=== PATIENT | male | born 1955 | race Caucasian/White ===

== ENCOUNTER 2017-01-25 11:50 | Inpatient (IN) | payer BC, MEDICARE ==
[2017-01-25] VITALS (12 sets, daily range): BP systolic 111–163; BP diastolic 48–80
[~2017-01-25] VITALS: Ht 167.6 cm; Wt 115.0 kg
[2017-01-25] MEDS ORDERED: SODIUM CHLORIDE 0.9% 1,000 ML IVB ONE (11:59)
[2017-01-25] MEDS ORDERED: ASPirin 81 mg TAB PO ONE (12:00)
[2017-01-25 12:35] LABS: Basophils # (auto) 0.1 uL; Basophils % (auto) 0.5 % (0.0-2.0); Eosinophils # (auto) 0.1 uL; Eosinophils % (auto) 0.8 % (0.0-7.0); Hematocrit 36.3 % (41.0-53.0); Hemoglobin 11.8 g/dL (13.5-17.5); Lymphocytes # (auto) 2.7 uL; Lymphocytes % (auto) 19.3 % (10.0-50.0); Mean Corpuscular Hemoglobin 29.8 pg (28.0-32.0); Mean Corpuscular Hgb Conc. 32.6 g/dL (32.0-36.0); Mean Corpuscular Volume 91.5 fL (80.0-100.0); Monocytes # (auto) 0.9 uL; Monocytes % (auto) 6.6 % (0.0-12.0); Neutrophils # (auto) 10.1 uL; Neutrophils % (auto) 72.8 % (37.0-80.0); Platelet Count (auto) 289 10^3/uL (140-450); Red Blood Cells 3.96 10^6/uL (4.5-5.90); Red Cell Distribution Width 15.6 % (11.8-14.3); White Blood Cell 13.9 10^3/uL (4.4-10.8)
[2017-01-25 12:45] LABS: INR 0.97 (0.9-1.15); Partial Thromboplastin Time 23.6 sec (22.64-33.71); Prothrombin Time 10.6 sec (9.37-12.3)
[2017-01-25 12:46] LABS: Alanine Aminotransferase 38 U/L (16-61); Albumin 3.1 g/dL (3.4-5.0); Anion Gap 10 (5-15); Aspartate Aminotransferase 24 U/L (15-37); BUN/Creatinine Ratio 22.4; Blood Urea Nitrogen 26 mg/dL (7-18); Calcium 8.6 mg/dL (8.5-10.1); Carbon Dioxide 28 mmol/L (21-32); Chloride 99 mmol/L (98-107); GFR African American 82 mL/min; GFR Non-African American 68 mL/min; Glucose 257 mg/dL (74-106); Potassium 3.6 mmol/L (3.5-5.1); Sodium 137 mmol/L (136-145)
[2017-01-25 12:51] LABS: Alkaline Phosphatase 116 U/L (45-117); Bilirubin, Total 0.3 mg/dL (0.2-1.0); Total Protein 7.3 g/dL (6.4-8.2)
[2017-01-25] MEDS ORDERED: ACETAMINOPHEN 500 MG TAB PO PRN (14:00)
[2017-01-25] MEDS ORDERED: DEXTROSE (50%) 50ML SYRG IV PRN (14:00)
[2017-01-25] MEDS ORDERED: NITROGLYCERIN 0.4 MG SL TAB SL PRN (14:00)
[2017-01-25] MEDS ORDERED: PROMETHAZINE HCL 25 MG/ML 1ML IV PRN (14:00)
[2017-01-25] MEDS ORDERED: TEMAZEPAM 15 MG CAP PO PRN (14:00)
[2017-01-25] MEDS ORDERED: HYDROcodone-ACET 5/325MG TAB PO PRN (14:00)
[2017-01-25] MEDS ORDERED: LORazepam 0.5 MG TAB PO PRN (14:00)
[2017-01-25] MEDS ORDERED: MORPHINE SULFATE 10 MG/ML INJ 1ML SDV IV PRN ×2 (14:00)
[2017-01-25] MEDS ORDERED: LACTULOSE 20Gm/30ML SOLN PO PRN (14:00)
[2017-01-25] MEDS: InsuLIN REG 1unit/0.01ml Soln (100units/ml) SC SCH ×2 (17:00→22:00)
[2017-01-25] MEDS: ACCU-CHEK COMFORT CURVE STRIP VI SCH ×2 (17:03→22:00)
[2017-01-25] MEDS: ENOXAPARIN SOD 100 MG/1 ML SYRINGE SC SCH (22:00)
[2017-01-25] MEDS: GABAPENTIN 100 MG CAP PO SCH (22:00)
[2017-01-25] MEDS ORDERED: ATORVASTATIN 20 MG TAB PO SCH (22:00)
[2017-01-26] VITALS (27 sets, daily range): BP systolic 98–156; BP diastolic 42–94
[2017-01-26 03:48] LABS: Basophils # (auto) 0.1 uL; Basophils % (auto) 0.6 % (0.0-2.0); Eosinophils # (auto) 0.1 uL; Eosinophils % (auto) 1.1 % (0.0-7.0); Hematocrit 36.3 % (41.0-53.0); Hemoglobin 11.9 g/dL (13.5-17.5); Lymphocytes # (auto) 2.4 uL; Mean Corpuscular Hemoglobin 29.7 pg (28.0-32.0); Mean Corpuscular Hgb Conc. 32.9 g/dL (32.0-36.0); Mean Corpuscular Volume 90.1 fL (80.0-100.0); Monocytes # (auto) 0.8 uL; Monocytes % (auto) 6.2 % (0.0-12.0); Neutrophils # (auto) 9.7 uL; Neutrophils % (auto) 74.1 % (37.0-80.0); Platelet Count (auto) 290 10^3/uL (140-450); Red Blood Cells 4.02 10^6/uL (4.5-5.90); Red Cell Distribution Width 15.8 % (11.8-14.3); White Blood Cell 13.1 10^3/uL (4.4-10.8)
[2017-01-26 04:03] LABS: Albumin 2.8 g/dL (3.4-5.0); BUN/Creatinine Ratio 25.4; Calcium 8.9 mg/dL (8.5-10.1); Potassium 4.7 mmol/L (3.5-5.1)
[2017-01-26 04:06] LABS: Bilirubin, Total 0.4 mg/dL (0.2-1.0); Total Protein 7.1 g/dL (6.4-8.2)
[2017-01-26] MEDS: InsuLIN REG 1unit/0.01ml Soln (100units/ml) SC SCH ×4 (07:03→22:00)
[2017-01-26] MEDS: ACCU-CHEK COMFORT CURVE STRIP VI SCH ×4 (07:03→22:00)
[2017-01-26] MEDS ORDERED: LIDOCAINE 2%HCL (LOCAL ANESTH.) INJ 20ML MDV ONE (08:56)
[2017-01-26] MEDS ORDERED: IOHEXOL 350 MG/ML 100ML IJ ONE ×3 (08:56→10:50)
[2017-01-26] MEDS ORDERED: fentaNYL CITRATE 100 MCG/2 ML VL ONE (09:20)
[2017-01-26] MEDS ORDERED: ANGIOMAX 250 MG VIAL IV ONE ×2 (09:20→10:01)
[2017-01-26] MEDS ORDERED: MIDAZOLAM HCL 1MG/1ML-2 ML VIAL ONE (09:20)
[2017-01-26] MEDS ORDERED: SODIUM CHL 0.9% 50 ML ONE ×2 (09:21→10:01)
[2017-01-26] MEDS ORDERED: ASPI81CH43 PO (09:37)
[2017-01-26] MEDS ORDERED: ATEN-60 PO (09:37)
[2017-01-26] MEDS ORDERED: BENA10TA9 PO (09:37)
[2017-01-26] MEDS ORDERED: INSUINJ18 SC (09:37)
[2017-01-26] MEDS ORDERED: FURO40TA4 PO (09:37)
[2017-01-26] MEDS ORDERED: GABA-339 PO (09:37)
[2017-01-26] MEDS ORDERED: DULO1CAP3 PO (09:37)
[2017-01-26] MEDS ORDERED: INSLANTI SC (09:37)
[2017-01-26] MEDS ORDERED: ROSU20TA14 PO (09:37)
[2017-01-26] MEDS ORDERED: PRASUGREL HCL 10 MG TAB ONE (10:58)
[2017-01-26] MEDS ORDERED: SODIUM CHLORIDE 0.9% 1,000 ML IV ONE (11:30)
[2017-01-26] MEDS: GABAPENTIN 100 MG CAP PO SCH (12:14)
[2017-01-26] MEDS: ASPirin 81 mg TAB PO SCH (12:15)
[2017-01-26] MEDS: DULoxetine HCL 30 MG CAP PO SCH (12:15)
[2017-01-26] MEDS: GABAPENTIN 300 MG CAP PO SCH ×2 (14:00→22:00)
[2017-01-26] MEDS: ENOXAPARIN SOD 100 MG/1 ML SYRINGE SC SCH (15:00)
[2017-01-26 16:17] LABS: Urine Bacteria NONE SEEN /hpf (None Seen); Urine Blood Negative /uL (Negative); Urine WBC <1 /hpf (0 - 3)
[2017-01-26 16:26] LABS: Alcohol, Urine < 3.0 mg/dL (0-5); Amphetamine Screen, Urine NEGATIVE (NEGATIVE); Barbiturate Scree,Urine NEGATIVE (NEGATIVE); Benzodiazephine Screen, Urine POSITIVE (NEGATIVE); Cannabinoid Screen, Urine NEGATIVE (NEGATIVE); Cocaine Screen, Urine NEGATIVE (NEGATIVE); Opiate Scree,Urine NEGATIVE (NEGATIVE); Phencyclidine Screen, Urine NEGATIVE (NEGATIVE)
[2017-01-26 17:28] LABS: Urine Specific Gravity > 1.050 (1.001-1.035)
[2017-01-26] MEDS: ATORVASTATIN 20 MG TAB PO SCH (22:00)
[2017-01-26] MEDS: INSULIN DETEMIR(LEVEMIR) 1unit/0.01ml Soln (100units/ml) SC SCH (22:00)
[2017-01-27 04:18] LABS: Basophils # (auto) 0 uL; Basophils % (auto) 0.4 % (0.0-2.0); Eosinophils # (auto) 0.1 uL; Eosinophils % (auto) 0.8 % (0.0-7.0); Hematocrit 32.6 % (41.0-53.0); Hemoglobin 10.8 g/dL (13.5-17.5); Lymphocytes # (auto) 1.5 uL; Mean Corpuscular Hemoglobin 30.1 pg (28.0-32.0); Mean Corpuscular Hgb Conc. 33.2 g/dL (32.0-36.0); Mean Corpuscular Volume 90.9 fL (80.0-100.0); Monocytes # (auto) 0.8 uL; Neutrophils # (auto) 8.5 uL; Neutrophils % (auto) 77.8 % (37.0-80.0); Platelet Count (auto) 250 10^3/uL (140-450); Red Blood Cells 3.58 10^6/uL (4.5-5.90); Red Cell Distribution Width 15.8 % (11.8-14.3); White Blood Cell 10.9 10^3/uL (4.4-10.8)
[2017-01-27 04:31] LABS: BUN/Creatinine Ratio 20.3; Calcium 8.4 mg/dL (8.5-10.1); Potassium 4.1 mmol/L (3.5-5.1)
[2017-01-27] MEDS: GABAPENTIN 300 MG CAP PO SCH ×3 (06:00→21:45)
[2017-01-27] MEDS: InsuLIN REG 1unit/0.01ml Soln (100units/ml) SC SCH ×4 (06:31→21:45)
[2017-01-27] MEDS: ACCU-CHEK COMFORT CURVE STRIP VI SCH ×3 (06:31→21:45)
[2017-01-27 07:00] VITALS: BP 154/82
[2017-01-27 09:00] VITALS: BP 132/81
[2017-01-27] MEDS: ASPirin 81 mg TAB PO SCH (09:35)
[2017-01-27] MEDS: DULoxetine HCL 30 MG CAP PO SCH (09:35)
[2017-01-27] MEDS: PRASUGREL HCL 10 MG TAB PO SCH (09:36)
[2017-01-27] MEDS: INSULIN DETEMIR(LEVEMIR) 1unit/0.01ml Soln (100units/ml) SC SCH ×2 (09:36→21:45)
[2017-01-27] MEDS ORDERED: PRASUGREL HCL 10 MG TAB PO ONE (10:00)
[2017-01-27] MEDS ORDERED: DEXTROSE (50%) 50ML SYRG IV PRN (12:30)
[2017-01-27 15:00] VITALS: BP 150/72
[2017-01-27] MEDS: ATORVASTATIN 20 MG TAB PO SCH (21:45)
[2017-01-28 04:41] VITALS: BP 108/57
[2017-01-28] MEDS: GABAPENTIN 300 MG CAP PO SCH ×3 (06:29→21:43)
[2017-01-28] MEDS: InsuLIN REG 1unit/0.01ml Soln (100units/ml) SC SCH ×4 (06:32→21:44)
[2017-01-28] MEDS: ACCU-CHEK COMFORT CURVE STRIP VI SCH ×4 (06:32→21:44)
[2017-01-28 08:00] VITALS: BP 127/75
[2017-01-28 09:00] VITALS: BP 127/75
[2017-01-28] MEDS: DULoxetine HCL 30 MG CAP PO SCH (09:56)
[2017-01-28] MEDS: ASPirin 81 mg TAB PO SCH (10:07)
[2017-01-28] MEDS: PRASUGREL HCL 10 MG TAB PO SCH (10:13)
[2017-01-28] MEDS: INSULIN DETEMIR(LEVEMIR) 1unit/0.01ml Soln (100units/ml) SC SCH ×2 (10:16→21:44)
[2017-01-28 13:00] VITALS: BP 132/69
[2017-01-28 17:00] VITALS: BP 101/59
[2017-01-28] MEDS: ATORVASTATIN 20 MG TAB PO SCH (21:43)
[2017-01-28 22:00] VITALS: BP 121/50
[2017-01-29 05:08] VITALS: BP 103/56
[2017-01-29] MEDS: GABAPENTIN 300 MG CAP PO SCH ×2 (06:20→14:30)
[2017-01-29] MEDS: ACCU-CHEK COMFORT CURVE STRIP VI SCH ×2 (06:58→11:30)
[2017-01-29] MEDS: InsuLIN REG 1unit/0.01ml Soln (100units/ml) SC SCH ×2 (06:58→12:23)
[2017-01-29 09:41] VITALS: BP 121/74
[2017-01-29] MEDS: DULoxetine HCL 30 MG CAP PO SCH (09:57)
[2017-01-29] MEDS: INSULIN DETEMIR(LEVEMIR) 1unit/0.01ml Soln (100units/ml) SC SCH (09:58)
[2017-01-29] MEDS: PRASUGREL HCL 10 MG TAB PO SCH (09:58)
[2017-01-29] MEDS: ASPirin 81 mg TAB PO SCH (09:59)
[2017-01-29 13:10] VITALS: BP 136/70
== END 2017-01-29 15:00 | disposition home or self-care (01) | DRG 250 ==
LOC: ER 11:50 → TELE 11:51 → ICU WEST 17:18 → TELE-WESTW 01-27 17:20
PROVIDERS: ADMIT Internal Medicine; ATTEND Internal Medicine
PROC: 4A023N7 Measurement of Cardiac Sampling and Pressure, Left Heart, Percutaneous Approach (ICD-10-PCS; principal; 2017-01-26)
PROC: 02703ZZ Dilation of Coronary Artery, One Artery, Percutaneous Approach (ICD-10-PCS; 2017-01-26)
PROC: B2111ZZ Fluoroscopy of Multiple Coronary Arteries using Low Osmolar Contrast (ICD-10-PCS; 2017-01-26)
PROC: B2131ZZ Fluoroscopy of Multiple Coronary Artery Bypass Grafts using Low Osmolar Contrast (ICD-10-PCS; 2017-01-26)
PROC: B2181ZZ Fluoroscopy of Left Internal Mammary Bypass Graft using Low Osmolar Contrast (ICD-10-PCS; 2017-01-26)
PROC: B3101ZZ Fluoroscopy of Thoracic Aorta using Low Osmolar Contrast (ICD-10-PCS; 2017-01-26)
DX: I25.10 Atherosclerotic heart disease of native coronary artery without angina pectoris (principal); I21.9 Acute myocardial infarction, unspecified; I46.9 Cardiac arrest, cause unspecified; Z68.41 Body mass index [BMI] 40.0-44.9, adult; E11.40 Type 2 diabetes mellitus with diabetic neuropathy, unspecified; D63.8 Anemia in other chronic diseases classified elsewhere; E11.65 Type 2 diabetes mellitus with hyperglycemia; E66.01 Morbid (severe) obesity due to excess calories; E78.5 Hyperlipidemia, unspecified; M54.9 Dorsalgia, unspecified; G89.29 Other chronic pain; F32.9 Major depressive disorder, single episode, unspecified; I10 Essential (primary) hypertension; Z82.49 Family history of ischemic heart disease and other diseases of the circulatory system; Z86.73 Personal history of transient ischemic attack (TIA), and cerebral infarction without residual deficits; Z98.61 Coronary angioplasty status; Z90.49 Acquired absence of other specified parts of digestive tract; Z95.1 Presence of aortocoronary bypass graft
CPT/HCPCS: 36415; 71010; 80048; 80053; 80307; 81001; 82550; 82962; 83036; 83735; 83880; 84484; 85025; 85379; 85610; 85652; 85730; 86141; 87081; 93005; 93306; 96360; 96372; 99152; 99153; 99291; C1874; J1815; J2250

== ENCOUNTER 2017-04-23 07:42 | Day surgery (SDC) | payer BC, MEDICARE ==
[~2017-04-23] VITALS: Ht 167.6 cm; Wt 108.4 kg
[~2017-04-23 07:42] MED LIST: ASPI81CH43 PO; ATEN-60 PO; BENA10TA9 PO; DULO1CAP3 PO; FURO40TA4 PO; GABA-339 PO; INSLANTI SC; INSUINJ18 SC; ROSU20TA14 PO
[2017-04-23 08:41] LABS: INR 0.92 (0.9-1.15)
[2017-04-23] MEDS ORDERED: EZET10TA PO (09:18)
[2017-04-23] MEDS ORDERED: PRAS10TA8 PO (09:18)
[2017-04-23] MEDS ORDERED: LATA0.0015 EACHEYE (09:18)
[2017-04-23] MEDS ORDERED: LIDOCAINE 2%HCL (LOCAL ANESTH.) INJ 20ML MDV ONE (09:41)
[2017-04-23] MEDS ORDERED: fentaNYL CITRATE 100 MCG/2 ML VL ONE (10:00)
[2017-04-23] MEDS ORDERED: MIDAZOLAM HCL 1MG/1ML-2 ML VIAL ONE ×2 (10:01→10:46)
== END 2017-04-23 13:25 | disposition home or self-care (01) ==
LOC: CATH 07:42
PROVIDERS: ATTEND Specialist
DX: I25.10 Atherosclerotic heart disease of native coronary artery without angina pectoris (principal); E66.9 Obesity, unspecified; Z68.38 Body mass index [BMI] 38.0-38.9, adult; Z95.1 Presence of aortocoronary bypass graft; I10 Essential (primary) hypertension; E78.5 Hyperlipidemia, unspecified; I73.9 Peripheral vascular disease, unspecified; E11.9 Type 2 diabetes mellitus without complications
CPT/HCPCS: 36415; 85610; 93619; 93623; C1730; C1894; J1644; J2250; J3010; J7030; 99152; 99153